=== PATIENT | female | born 1980 | race Caucasian/White ===

== ENCOUNTER 2024-02-03 11:42 | Emergency (ER) | payer BC, SELFPAY ==
--- NOTE | ~2024-02-03 | CT_ITS ---
EXAMINATION: CT brain wo con DATE: 02/03/2024 14:15 INDICATION: Facial weakness. TECHNIQUE: Computed tomography (CT) of the head was performed without intravenous contrast. The mA wa s adjusted according to patient size. Iterative reconstruction technique was employed. The dose-lengt h product was 605.33 mGy-cm. COMPARISON: None FINDINGS: There is no intracranial hemorrhage, acute infarction, or abnormal intracranial mass lesion . The ventricles are normal in size. The paranasal sinuses are clear. The orbits are normal. The mast oid air cells are normal. There is cerumen in right external auditory canal. IMPRESSION: 1. Normal brain. Reviewed, dictated and finalized at location E. IMPRESSION: 1. Normal brain.
--- NOTE | ~2024-02-03 | XR_ITS ---
EXAMINATION: XR chest 2V 02/03/2024 13:06 INDICATION: Chest pain PROCEDURE: 2 view chest COMPARISON: No prior studies FINDINGS: The lungs are clear. Calcified granuloma left thorax. The cardiomediastinal silhouette is w ithin normal limits. There are no pleural effusions. There is no pneumothorax suspected. IMPRESSION: 1: NO ACUTE CARDIOPULMONARY DISEASE. Reviewed, dictated and finalized at location B.
--- NOTE | 2024-02-03 11:43 | ECG_ITS ---
SEE SCANNED COPY FOR CONFIRMED REPORT MTDD
[2024-02-03 11:52] VITALS: BP 116/92; PULSE 81; RESP 15; TEMP 36.5; O2SAT 100
[2024-02-03 12:06] LABS: Basophils Absolute Auto 0.1 K/mm3 (0.0-0.1); Basophils Percent Auto 0.7 % (0.2-1.2); Eosinophils Absolute Auto 0.4 K/mm3 (0-0.3); Eosinophils Percent Auto 5.2 % (0-4.4); Hematocrit 42.3 % (37.0-47.0); Hemoglobin 14.1 g/dL (12.0-15.0); Immature Granulocyte Absolute 0.01 K/mm3 (0.00-0.031); Immature Granulocyte Percent A 0.1 % (0-0.5); Lymphocytes Absolute Auto 2.09 K/mm3 (0.9-3.2); Lymphocytes Percent Auto 29.3 % (18.3-44.2); Mean Corpuscular HGB Conc 33.3 g/dl (32-36); Mean Corpuscular Hemoglobin 30.6 pg (26-34); Mean Corpuscular Volume 91.8 fl (80-100); Mean Platelet Volume 8.9 fl (7.4-10.4); Monocytes Absolute Auto 0.5 K/mm3 (0.1-0.6); Monocytes Percent Auto 7.6 % (2.6-8.5); Neutrophils Absolute Auto 4.1 K/mm3 (1.3-6.7); Neutrophils Percent Auto 57.1 % (45.5-73.1); Platelet Count Result 424 k/mm3 (150-375); Red Blood Count 4.61 M/mm3 (4.2-5.4); Red Cell Distribution Width 12.4 % (11.5-14.5); White Blood Count 7.1 K/mm3 (4.5-10.0)
[2024-02-03 12:17] LABS: Alanine Aminotransferase 19 U/L (6-35); Albumin Level 4.7 g/dL (3.5-5.1); Alkaline Phosphatase 65 U/L (38-126); Anion Gap 7 mmol/L (4-12); Aspartate Amino Transferase 26 U/L (14-36); Bilirubin,Total 0.8 mg/dL (0.2-1.3); Blood Urea Nitrogen 8 mg/dL (7-17); Calcium 10.2 mg/dL (8.4-10.2); Carbon Dioxide 27 mmol/L (22-30); Chloride 104 mmol/L (98-107); Estimated CRCL calculation 103 ml/min; Estimated Glomerular Filt Rate > 60; Glucose 106 mg/dL (65-110); Lipase 72 U/L (23-300); Potassium 3.9 mmol/L (3.4-5.0); Prothrombin Time 13.1 Seconds (11.1-14.7); Sodium 138 mmol/L (137-145)
[2024-02-03 12:18] LABS: Partial Thromboplastin Time 32.3 Seconds (22.3-36.8)
--- NOTE | 2024-02-03 12:18 | ED.CHESTPAIN ---
HPI - Chest Pain General Chief Complaint: Chest Pain Stated Complaint: chest pain Time Seen by Provider: 02/03/24 12:00 History of Present Illness HPI narrative: Patient is a 43-year-old healthy female here with chest pain. She notes that about 1 week ago her chest pain began, was located on the right side, radiated up into her jaw and was associated with the headache behind her right eye. She notes that after some time it seemed to self resolve. She has had some mild aching in her chest throughout the week this week and today began having sharp pains again. She notes that a sharp, burning and stabbing pain located on the right side and once again going into her right jaw and having a headache behind her right eye. Since arrival to the ER, her pain is now completely resolved. She took nothing for the pain at home. She notes some associated mild shortness of breath throughout the week this week, no cough, congestion, fever, chills. No recent travel, no prior PE/DVT, no recent surgery. No family history of cardiac disease. Her only medication is spironolactone for acne. Related Data Allergies Allergy/AdvReac Type Severity Reaction Status Date / Time No Known Allergies Allergy Verified 02/03/24 11:42 Review of Systems Review of Systems: All systems reviewed & are unremarkable except as noted in HPI and below Exam Narrative: GENERAL: Well-appearing, well-nourished, and in no acute distress. HEAD: Normocephalic, atraumatic. EYES: PERRLA and EOMI. ENT: Nares clear. Mucous membranes moist. NECK: Supple. CHEST: Clear to auscultation. No respiratory distress. HEART: Regular rate and rhythm. Normal peripheral pulses. ABDOMEN: Soft, nontender, nondistended. EXTREMITIES: Normal range of motion. No edema. No calf tenderness. SKIN: Warm, dry, no rash. NEURO: No focal deficits. Alert and oriented x3. PSYCH: Normal mood and affect. Course Course Emergency Course: Chart review performed. Patient here with intermittent chest pain since last Friday, jaw pain, LAUGHLIN. Triage vitals normal. No prior visit in our system. Triage chest pain protocol reviewed. CBC unremarkable, CMP negative, initial troponin negative. Patient seen and evaluated, non toxic appearing, no current symptoms. Discussed cardiac workup with patient, agreeable. Applying PERC criteria, PE unlikely. Patient told nursing staff that she had a brief episode of facial droop over the last week which self resolved followed by an episode of slurred speech several days later which self resolved, no current neurological symptoms. Will do screening CT brain, NIH of 0, minimal risk factors for vascular disease, low suspicion for TIA. Repeat troponin negative. CT brain negative. CXR negative. negative. Will reevaluate patient. HEART Score of 0. Re-evaluated patient. She continues to be asymptomatic. Additional information obtained from patient regarding these nonspecific neurologic symptoms she had throughout the week this week. She states that last week she was getting massage and when she was lying on her back the massage therapist thought maybe she had a facial droop on the right side however upon sitting up there was no facial droop present and this never recurred. Suspect this could have just been positional as patient denied any symptom experienced at that time. She also notes that last week when she was on a phone call she noted her words seemed to be slurring which also occurred only over a few seconds and then returned to baseline. She did have a headache at that time and has never experienced these symptoms again. I did share decision making with patient regarding options for admission for MRI for possible TIA however she has very low risk for any cardiovascular disease or CVA, with minimal risk factors. TIA scores are low risk. She would prefer to establish care outpatient and discuss options further. Advised she should return to the emergency department [facility]
[2024-02-03 12:28] LABS: Troponin I < 0.012 ng/mL (0.000-0.034)
[2024-02-03] MEDS: ASPIRIN 81 MG CHEWABLE TABLET 324 MG PO (12:48)
--- NOTE | 2024-02-03 14:34 | ECG_ITS ---
SEE SCANNED COPY FOR CONFIRMED REPORT MTDD
[2024-02-03 15:20] LABS: Troponin I < 0.012 ng/mL (0.000-0.034)
[2024-02-03 16:19] VITALS: BP 124/98; PULSE 75; RESP 20; O2SAT 98
== END 2024-02-03 16:30 | disposition home or self-care (01) ==
PROVIDERS: Preventive Medicine Aerospace Medicine; Emergency Provider Student in an Organized Health Care Education/Training Program; Referring Provider Emergency Medicine
DX: R07.89 Other chest pain (principal); R00.1 Bradycardia, unspecified
CPT/HCPCS: 36415; 70450; 71046; 80053; 81025; 83690; 84484; 85025; 85610; 85730; 93005; 99284; A9270

== ENCOUNTER 2025-03-23 12:18 | Outpatient (CLI) | payer BC, SELFPAY ==
--- NOTE | ~2025-03-23 | MMUS_ITS ---
EXAMINATION: MM diagnostic benton LT w ricky, US breast LT complete HISTORY: Follow-up left breast asymmetries. TECHNIQUE: Additional 3-D tomosynthesis images of the left breast were performed and synthetic 2-D im ages were generated. CAD analysis was submitted and interpreted. High resolution complete left breast ultrasound was performed. COMPARISON: Mammogram dated 01/27/2025 BREAST PARENCHYMAL COMPOSITION: Dense: The breasts are heterogeneously dense, which may obscure small masses FINDINGS: MAMMOGRAPHIC FINDINGS: There are no suspicious masses, calcifications or architectural distortion in the left breast to sugg est malignancy ULTRASOUND: At 2:00, 2 cm from the nipple there is a prominent duct. At 2:00 near the nipple there is a 7 mm cyst . At 6:00, 3 cm from the nipple there is mildly prominent ducts. No suspicious masses to suggest nohemi gnancy. IMPRESSION: 1. No evidence for malignancy in the left breast. Benign findings. 2. Routine yearly screening mammogram and regular clinical breast examination are recommended. BI-RADS Category 2: Benign finding(s). Reviewed, dictated and finalized at location B. IMPRESSION: 1. No evidence for malignancy in the left breast. Benign findings. 2. Routine yearly screening mammogram and regular clinical breast examination a re recommended. BI-RADS Category 2: Benign finding(s).
--- OUTSIDE RECORDS SUMMARY | 2025-03-23 14:16 | XMS_ITS | Encounter Summary ---
Author Organization [facility] Healthcare Address [address] [place] [id number] Care Team Providers Care Chair Spring Assembler Name Role Phone Krystal Terrazas NP Primary Care Provider [phone] Encounter Details Date Type Department Care Team (Late st Contact Info) Description 02/17/2025 Results Follow-Up [facility] Primary Care at [address] [address] Krystal Terrazas NP [address] [facility] [address] [place] [address] CT Abdomen W WO Contrast Social History Tobacco Use Types Packs/Day Years Used Date Smoking Tobacco: Never Smokeless Tobacco: Never PHQ-2 Answer Date Recorded PHQ-2 Total Score (If total score is 3 or more points, staff should administer the PHQ-9) 0 12/30/2024 Comments No Sex and Gender Information Value Date Recorded Sex Assigned at Not on file Legal Sex Female 2:04 PM CDT Gender Identity Not on file Sexual Orientation Not on file documented as of this encounter Plan of Treatment Not on file documented as of this encounter Visit Diagnoses Not on filedocumented in this encounter Care Teams Chair Spring Assembler Relationship Specialty Start Date End Date Krystal Terrazas NP [address] [place] [address] [address] [place] [address] PCP - General Family Medicine 05/11/24 [facility] Obstetrics and Gynecology 05/11/24 documented as of this encounter
--- OUTSIDE RECORDS SUMMARY | 2025-03-23 14:16 | XMS_ITS | Referral Summary ---
Author Organization [address] Address [address] [facility] [address] [place] [address] Care Team Providers Care Core Paster Name Role Phone Krystal Terrazas NP Primary Care Provider [phone] Encounters Date Type Department Care Team Description 02/17/2025 Results Follow-Up [facility] Primary Care at [address] [address] Abdomen W WO Contrast 02/04/2025 1:47 PM CDT - 02/04/2025 11:59 PM CDT Hospital Encounter [facility] [address] [place] [phone] Adrenal mass, left Discharge Disposition: Discharge to home or self care 01/06/2025 Orders Only [facility] at [address] [place] [id number] Gissell Hubbard NP Aortic root dilation (Primary Dx) 01/06/2025 Results Follow-Up [facility] at [address] [place] [id number] Chest WO Contrast 12/31/2024 2:47 PM CDT - 12/31/2024 11:59 PM CDT Hospital Encounter [facility] [address] [place] [phone] Aortic root dilation Discharge Disposition: Discharge to home or self care 12/30/2024 8:00 AM CDT Office Visit [facility] Primary Care at [address] [address] Krystal Terrazas NP Annual physical exam (Primary Dx); Heart palpitations from Last 3 Months Allergies No known active allergies Medications spironolactone (ALDACTONE) 100 mg tablet Take 1 tablet (100 mg total) by mouth daily 4 Active levonorgestreL (MIRENA) IUD 1 each by intrauterine route once Active metoprolol XL (TOPROL-XL) 50 mg extended release tablet Take 1 tablet (50 mg total) by mouth daily 30 tablet 11 5 01/25/20 26 Active Active Problems Problem Noted Date Diagnosed Date Heart palpitations 12/30/2024 Assessment & Plan (12/30/2024 8:31 AM CDT): Pt experiencing headaches for past 2 weeks, started Metoprolol x 4 weeks ago--wondering if there is a correlation. Not overly convinced this is the case, discussed allergy medication. Pt can try splitting the Metoprolol in half to see if that helps headaches, if it does may need to consider switching beta-blockers. Aortic root dilation 07/21/2024 Immunizations Immunization Administration Dates Next Due Immune Globulin, IM 11/15/2014 Influenza, Unspecified 10/13/2023(Deferr ed: Patient Refused),10/13/2022(Deferred: Patient Refused) Tdap 03/09/2019 Social History Tobacco Use Types Packs/Day Years Used Date Smoking Tobacco: Never Smokeless Tobacco: Never Tobacco Cessation:Counseling Given: Not Answered PHQ-2 Answer Date Recorded PHQ-2 Total Score (If total score is 3 or more points, staff should administer the PHQ-9) 0 12/30/2024 Comments No Sex and Gender Information Value Date Recorded Sex Assigned at Not on file Legal Sex Female 2:04 PM CDT Gender Identity Not on file Sexual Orientation Not on file Last Filed Vital Signs Vital Sign Reading Time Taken Comments Blood Pressure 90/62 12/30/2024 8:10 AM CDT Pulse 75 12/30/2024 8:10 AM CDT Temperature 36.5 C (97.7 F) 12/30/2024 8:10 AM CDT Respiratory Rate 18 12/03/2024 9:26 AM TRIAL ATTORNEY Oxygen Saturation 96% 12/30/2024 8:10 AM CDT Inhaled Oxygen Concentration - - Weight 118.8 kg (262 lb) 12/30/2024 8:10 AM CDT Height 180.3 cm (5' 11) 12/30/2024 8:10 AM CDT Body Mass Index 36.54 12/30/2024 8:10 AM CDT Plan of Treatment Not on file Procedures Procedure Name Priority Date/Time Associated Diagnosis Comments CT ABDOMEN W WO CONTRAST Schedule Routine, Read Routine (OP Routine) 02/04/2025 2:23 PM CDT Adrenal mass, left CT CHEST WO CONTRAST Schedule Routine, Read Routine (OP Routine) 12/31/2024 3:00 PM CDT Aortic root dilation HEPATITIS C ANTIBODY Routine 05/14/2024 4:26 PM CDT Encounter for hepatitis C screening test for low risk patient HM PAP SMEAR WITH HPV Routine 01/29/2022 3:06 PM CDT from Last 3 Months or Most Recently Relevant to Health Maintenance Results * CT Abdomen W WO Contrast (02/04/2025 2:23 PM CDT) Anatomical Region Laterality Modality Body N/A Computed Tomogra phy 02/16/2025 4:00 PM CDT Narrative 02/16/2025 4:21 PM CDT EXAM DESCRIPTION: CT ABDOMEN W WO CONTRAST REASON FOR STUDY: Adrenal mass, > 2 to < 4cm, no history of malignancy, adrenal protocol, incidental finding on recent CT chest Incidental left adrenal mass seen on CT dated 12/31/24. Pt reports no complaints, no abdominal surgeries TECHNIQUE: CT scan of the abdomen performed without and with intravenous and without oral contrast using helical scanning technique with dynamic intravenous contrast injection. Reconstructed coronal and sagittal MPR images reviewed. All images stored on PACS. Automated exposure control was used as a dose optimization technique for this examination. CONTRAST TYPE/DOSE: 100mL of IOVERSOL 350 MG IODINE/ML INTRAVENOUS SYRINGE injected via right arm IV COMPARISON: CT chest 12/31/2024 FINDINGS: LOWER CHEST: No significant pulmonary abnormalities. No effusion. LIVER: Normal size. No identified cystic or solid masses. GALLBLADDER: Unremarkable. BILE DUCTS: No intrahepatic or extrahepatic ductal dilatation. SPLEEN: Normal size. No focal lesions. PANCREAS: No identified cystic or solid masses. No significant calcifications. No adjacent inflammation or peripancreatic fluid collections. Pancreatic duct not dilated. ADRENALS: Right adrenal gland is normal. 1.6 cm nodule in the left adrenal gland. This shows enhancement and washout characteristics compatible with a benign adenoma. KIDNEYS/URINARY TRACT: No identified significant cystic or solid masses. No stones. No hydronephrosis or hydroureter. Symmetric enhancement. GI: No dilated bowel loops. No obvious wall thickening. No significant diverticular disease. Partially visualized normal appendix. PERITONEUM: No ascites or free air. RETROPERITONEUM: No adenopathy. VASCULATURE: No abdominal aortic aneurysm. MUSCULOSKELETAL: No acute findings. OTHER: No other significant abnormality. IMPRESSION: 1.6 cm left adrenal nodule with enhancement and washout characteristics compatible with a benign adenoma. THIS IS AN ELECTRONICALLY VERIFIED FINAL REPORT 02/16/2025 4:21 PM - Electronically signed by Pawan Allred M.D. RW: EDOUARD Report ID: [id number] Reading Location: [id number] Procedure Note Pawan Allred MD - 02/16/2025 EXAM DESCRIPTION: CT ABDOMEN W WO CONTRAST REASON FOR STUDY: Adrenal mass, > 2 to < 4cm, no history of malignancy, adrenal protocol, incidental finding on recent CT chest Incidental left adrenal mass seen on CT dated 12/31/24. Pt reports no complaints, no abdominal surgeries TECHNIQUE: CT scan of the abdomen performed without and with intravenousand without oral contrast using helical scanning technique with dynamic intravenous contrast injection. Reconstructed coronal and sagittal MPRimages reviewed. All images stored on PACS. Automated exposure control was usedas a dose optimization technique for this examination. CONTRAST TYPE/DOSE: 100mL of IOVERSOL 350 MG IODINE/ML INTRAVENOUSSYRINGE injected via right arm IV COMPARISON: CT chest 12/31/2024 FINDINGS: LOWER CHEST: No significant pulmonary abnormalities. Noeffusion. LIVER: Normal size. No identified cystic or solid masses. GALLBLADDER: Unremarkable. BILE DUCTS: No intrahepatic or extrahepatic ductal dilatation. SPLEEN: Normal size. No focal lesions. PANCREAS: No identified cystic or solid masses. No significant calcifications. No adjacent inflammation or peripancreatic fluidcollections. Pancreatic duct not dilated. ADRENALS: Right adrenal gland is normal. 1.6 cm nodule in the left adrenal gland. This shows enhancement andwashout characteristics compatible with a benign adenoma. KIDNEYS/URINARY TRACT: No identified significant cystic or solid masses.No stones. No hydronephrosis or hydroureter. Symmetric enhancement. GI: No dilated bowel loops. No obvious wall thickening. No significant diverticular disease. Partially visualized normal appendix. PERITONEUM: No ascites or free air. RETROPERITONEUM: No adenopathy. VASCULATURE: No abdominal aortic aneurysm. MUSCULOSKELETAL: No acute findings. OTHER: No other significant abnormality. IMPRESSION: 1.6 cm left adrenal nodule with enhancement and washout characteristics compatible with a benign adenoma. THIS IS AN ELECTRONICALLY VERIFIED FINAL REPORT 02/16/2025 4:21 PM - Electronically signed by Pawan Allred M.D. RW: EDOUARD Report ID: [id number] Reading Location: [id number] Krystal Terrazas NP IMG CT PROCEDURES Final Result * CT Chest WO Contrast (12/31/2024 3:00 PM CDT) Anatomical Region Laterality Modality Body N/A Computed Tomogra phy 01/06/2025 9:34 AM CDT Narrative 01/06/2025 9:43 AM CDT EXAM DESCRIPTION: CT CHEST WO CONTRAST REASON FOR STUDY: Aortic aneurysm suspected, Thoracic aneurysm Aortic root dilation seen on echo approx 6 months ago. Palpitations for one year. TECHNIQUE: CT scan of the chest performed without intravenous contrast using helical scanning technique. Reconstructed coronal and sagittal MPR images reviewed. All images stored on PACS. Automated exposure control was used as a dose optimization technique for this examination. COMPARISON: None FINDINGS: The sensitivity for detection of solid visceral lesions is diminished without the use of intravenous contrast. LUNGS: There is no pneumonic consolidation. There is mild subsegmental scarring and atelectasis. There are scattered granulomatous calcifications. The central airways are widely patent. There is no suspicious pulmonary nodule. PLEURA: No effusion. No pneumothorax. MEDIASTINUM/INEZ: There is no mediastinal or hilar lymphadenopathy. Postinflammatory calcifications are present. HEART: The heart is normal in size without a pericardial effusion. . CORONARY ARTERY CALCIFICATION: No significant coronary artery calcification. VASCULATURE: The ascending thoracic aorta is borderline enlarged measuring 4 cm at the level of the main pulmonary trunk. At the sinuses of Valsalva, measurement is 3 point 5 cm. The descending thoracic aorta is normal in caliber. AXILLA: No adenopathy. CHEST WALL: No masses. No subcutaneous air. HARDWARE/LINES/TUBES: None. UPPER ABDOMEN: The visualized upper abdomen reveals contracted gallbladder. There is nodularity of the left adrenal gland, measuring 1.6 cm. Hounsfield units are 18, technically indeterminate. MUSCULOSKELETAL: No significant abnormality. OTHER: No other significant abnormality. IMPRESSION: Mild aneurysmal dilation of the ascending thoracic aorta measuring 4 cm at the level of the main pulmonary trunk. No pneumonic consolidation, effusion or pneumothorax. No lymphadenopathy. Indeterminate left adrenal nodule. Adrenal mass protocol imaging with CT or MRI recommended unless there are prior studies which document long-term stability. THIS IS AN ELECTRONICALLY VERIFIED FINAL REPORT 01/06/2025 9:43 AM - Electronically signed by Sonia Odom M.D. TW: TW Report ID: [id number] Reading Location: [place] [address] Procedure Note Sonia Odom MD - 01/06/2025 EXAM DESCRIPTION: CT CHEST WO CONTRAST REASON FOR STUDY: Aortic aneurysm suspected, Thoracic aneurysm Aortic root dilation seen on echo approx 6 months ago. Palpitations forone year. TECHNIQUE: CT scan of the chest performed without intravenous contrastusing helical scanning technique. Reconstructed coronal and sagittal MPR images reviewed. All images stored on PACS. Automated exposure control was usedas a dose optimization technique for this examination. COMPARISON: None FINDINGS: The sensitivity for detection of solid visceral lesions is diminished without the use of intravenous contrast. LUNGS: There is no pneumonic consolidation. There is mild subsegmental scarring and atelectasis. There are scattered granulomatouscalcifications. The central airways are widely patent. There is no suspicious pulmonary nodule. PLEURA: No effusion. No pneumothorax. MEDIASTINUM/INEZ: There is no mediastinal or hilar lymphadenopathy. Postinflammatory calcifications are present. HEART: The heart is normal in size without a pericardial effusion. . CORONARY ARTERY CALCIFICATION: No significant coronary arterycalcification. VASCULATURE: The ascending thoracic aorta is borderline enlargedmeasuring 4 cm at the level of the main pulmonary trunk. At the sinuses of Valsalva, measurement is 3 point 5 cm. The descending thoracic aorta is normal in caliber. AXILLA: No adenopathy. CHEST WALL: No masses. No subcutaneous air. HARDWARE/LINES/TUBES: None. UPPER ABDOMEN: The visualized upper abdomen reveals contractedgallbladder. There is nodularity of the left adrenal gland, measuring 1.6 cm.Hounsfield units are 18, technically indeterminate. MUSCULOSKELETAL: No significant abnormality. OTHER: No other significant abnormality. IMPRESSION: Mild aneurysmal dilation of the ascending thoracic aorta measuring 4 cmat the level of the main pulmonary trunk. No pneumonic consolidation, effusion or pneumothorax. No lymphadenopathy. Indeterminate left adrenal nodule. Adrenal mass protocol imaging with CTor MRI recommended unless there are prior studies which document long-term stability. THIS IS AN ELECTRONICALLY VERIFIED FINAL REPORT 01/06/2025 9:43 AM - Electronically signed by Sonia Odom M.D. TW: TW Report ID: [id number] Reading Location: [place] [address] Gissell Hubbard NP [facility] CT PROCEDURES Final Result * Hepatitis C antibody Blood (05/14/2024 4:26 PM CDT) Hep C Ab Nonreactive Nonreactive Comment: Interpretive Data Nonreactive: Antibodies to HCV not detected. Does NOT exclude the possibility of recent exposure to HCV. Equivocal: Equivocal for HCV antibodies. Supplemental molecular testing will be automatically performed to determine infection status in accordance with current CDC screening recommendations. Reactive: Positive for HCV antibodies. This may represent current or past HCV infection. Supplemental molecular testing will be automatically performed to determine current infection status in accordance with current CDC screening recommendations. Interpretive data was last revised on 2019. Blood 05/14/2024 4:26 PM CDT 05/14/2024 8:57 PM CDT Krystal Terrazas NP LAB MICROBIOLOGY - GENERAL ORDER SUSHMA Final Result [facility] [id number] [address] Department [place] [address] * HM PAP SMEAR WITH HPV (01/29/2022 3:06 PM CDT) Historical Provider HEALTH MAINTENANCE Final Result from Last 3 Months or Most Recently Relevant to Health Maintenance Insurance [employer] [place] Care Teams Core Paster Relationship Specialty Start Date End Date Krystal Terrazas NP [address] [address] PCP - General Family Medicine 05/11/24 [facility] Obstetrics and Gynecology 05/11/24
--- OUTSIDE RECORDS SUMMARY | 2025-03-23 14:16 | XMS_ITS | Clinical Summary ---
Author Organization [address] Address [address] [facility] [address] [place] [address] Care Team Providers Care Special Needs Child Caregiver Name Role Phone Krystal Terrazas NP Primary Care Provider [phone] Allergies No known active allergies Medications spironolactone [...] consider switching beta-blockers. Aortic root dilation 07/21/2024 Encounters Date Type Department Care Team Description 02/17/2025 Results Follow-Up [facility] Primary Care at [address] [address] Krystal Terrazas, CHRISTINE CT Abdomen W WO Contrast 02/04/2025 1:47 PM CDT - 02/04/2025 11:59 PM CDT Hospital Encounter [facility] [address] [place] [address] Adrenal mass, left Discharge Disposition: Discharge to home or self care 01/06/2025 Orders Only [facility] at [address] [place] [phone] Gissell Hubbard NP Aortic root dilation (Primary Dx) 01/06/2025 Results Follow-Up [facility] at [address] [address] Chest WO Contrast 12/31/2024 2:47 PM CDT - 12/31/2024 11:59 PM CDT Hospital Encounter [facility] [address] [place] [address] Aortic root dilation Discharge Disposition: Discharge to home or self care 12/30/2024 8:00 AM CDT Office Visit [facility] Primary Care at [address] [phone] Krystal Terrazas NP Annual physical exam (Primary Dx); Heart palpitations from Last 3 Months Immunizations Immunization Administration Dates Next Due Immune Globulin, IM 11/15/2014 Influenza, Unspecified 10/13/2023(Deferr ed: Patient Refused),10/13/2022(Deferred: Patient Refused) Tdap 03/09/2019 Surgical History Surgery Date Site/Laterality Comments DILATION AND CURETTAGE OF UTERUS 2008 Medical History Medical History Date Comments Acne Family History Medical History Relation Name Comments Pancreatic cancer Maternal Grandfather Hypertension Mother Ovarian cancer Mother's Sister vulvar cancer Mother's Sister Cancer Paternal Grandfather Heart failure Paternal Grandmother Ulcerative colitis Sister Relation Name Status Comments Maternal Grandfather Mother Mother's Sister Paternal Grandfather Paternal Grandmother Sister Social History Tobacco Use Types Packs/Day Years [...] on file Sexual Orientation Not on file Obstetrics History Last Filed Vital Signs Vital Sign Reading Time Taken Comments Blood Pressure 90/62 12/30/2024 8:10 AM CDT Pulse 75 12/30/2024 8:10 AM CDT Temperature 36.5 C (97.7 F) 12/30/2024 8:10 AM CDT Respiratory Rate 18 12/03/2024 9:26 AM DIRECTOR ON AIR Oxygen Saturation 96% 12/30/2024 8:10 AM CDT Inhaled Oxygen Concentration - - Weight 118.8 kg (262 lb) 12/30/2024 8:10 AM CDT Height 180.3 cm (5' 11) 12/30/2024 8:10 AM CDT Body Mass Index 36.54 12/30/2024 8:10 AM CDT Plan of Treatment Health Maintenance Due Date Last Done Comments Breast Cancer Screening-Mammogram 1982 Varicella Vaccines (1 of 2 - 13+ 2-dose series) 1995 Hepatitis B Screening 2000 Influenza Vaccine (Season Ended) 2025 Depression Screening 12/30/2025 12/30/2024, 05/11/2024 Regular Well Visit/Exam 18-64 12/30/2025 12/30/2024 Cervical Cancer Screening 05/11/20262022, 01/29/2022 DTaP/Tdap/Td Vaccine (2 - Td or Tdap) 03/09/2029 03/09/2019 Hepatitis C Screening Completed 05/14/2024 HPV Vaccines Aged Out No longer eligi ble based on patient's age to complete this topic Pneumococcal vaccine <65 Aged Out No longer eligible based on patient's age to complete this topic Procedures Procedure Name Priority Date/Time Associated Diagnosis [...] Pawan Allred M.D. RW: EDOUARD Report ID: [id number] Reading Location: [id number] Procedure Note Pawan Allred MD - 02/16/2025 [...] Pawan Allred M.D. RW: EDOUARD Report ID: [id number] Reading Location: [id number] [place] Krystal Terrazas NP IMG CT PROCEDURES Final [...] Electronically signed by Sonia Odom M.D. TW: ERIC Report ID: [id number] Reading Location: [id number] Procedure Note Sonia Odom MD - 01/06/2025 [...] Sonia Odom M.D. TW: TW Report ID: [id number] Reading Location: [place] [address] Gissell Hubbard SHOE SHANKER IMG CT PROCEDURES Final Result * Hepatitis C [...] MICROBIOLOGY - GENERAL ORDER SUSHMA Final Result [facility] [address] [address] Department [place] [address] * PAP SMEAR WITH HPV (01/29/2022 3:06 PM CDT) Historical Provider HEALTH MAINTENANCE Final Result from Last 3 Months or Most Recently Relevant to Health Maintenance Insurance [place] [employer] Care Teams Special Needs Child Caregiver Relationship Specialty Start Date End Date Krystal Terrazas NP [address] [address] PCP - General Family Medicine 05/11/24 [facility] Obstetrics and Gynecology 05/11/24
--- OUTSIDE RECORDS SUMMARY | 2025-03-23 14:16 | XMS_ITS | Data Portability ---
Author Organization [facility], [id number]. [facility] Address [address] [place] [address] Assessment Encounter Date Assessment Date Assessment LastModified by Organization Details LastModified Time 03/21/2025 03/21/2025 - Pap smear performed with concurrent HPV screening. - Discussion about the effectiveness and duration of the Mirena IUD. - Reinforce importance of regular breast self-examination s post-mammogram. [email or web address] Not available 03/21/2025 09:32:17 Plan of Treatment Reminders Order Date Submit Date Provider Last Modified By Organization Details Last Modified Time Details Appointments ANNUAL- EST 15 2025 08:00A Anupama CHILDRESS WHNP Not available Not available Not available Lab HPV DNA, high-risk - Reflex to genotypin g if HPV Detected 2024 025 [facility] ([facility]), [address] [facility] [address], [place], [address], 03/21/2025 12:58:15 pap, LB 2024 025 [facility] ([facility]), [address] [facility] [address] , [address], [place], [address], 03/21/2025 12:58:15 Referral None recorded. Procedures None recorded. Surgeries None recorded. Imaging None recorded. Medication Orders spironola ctone 25 mg tablet 2024 025 [facility], [address] [facility] [address] [facility] [address], [place], [address], 03/22/2025 09:55:07 Patient TargetsNo targets recorded. Patient Instructions Encounter Date Encounter Id Patient Instructions Last Modified By Organization Details Last Modified Time 03/21/2025 [id number] - Check the patient portal for Pap and HPV test results. - Maintain regular appointments for medication monitoring. [email or web address] Not available 03/22/2025 09:53:36 During the visit , we discussed the patient's ongoing health maintenance, including the importance of routine cervical cancer screening through Pap and HPV tests. Continued use of the Mirena IUD was confirmed effective, and advice was given for prescription maintenance of spironolactone for acne management. Mammogram follow-up discussion promised attention to incoming results. The patient was instructed to return for her next annual exam unless earlier attention is necessary per lab results or mammogram findings. [email or web address] Not available 03/21/2025 18:11:02 Reason for Referral None Reported. Results Created Date Observation Date Name Description Value Unit Range Abnormal Flag Note LastModifiedBy Organization Detail LastModifiedTime 03/23/20 25 03/23/2025 MAMMO , diagn ostic , digit al, unila teral No observ ation record ed. [facility] [address] [facility] [address], [place], [address], 03/23/2025 14:32:45 Result Notes None recorded. Problems Name Problem SNOMED Code Status Onset Date Resolution Date Notes Provider Name and Address Organization Details Recorded Time Atypical glandula r cells on cervical Papanico laou smear 192531232 Active Abnormal PAP Smear, Problem Code: 795.00; Problem Code Type: ICD-9; Startdat e: '10/20/13 HSGIL'; Not Available [facility] 13:10:44 Past pregnanc y history of gestatio nal diabetes mellitus 022924773 Completed 202403/17/2025 Yaneli ramirez [facility] 17:27:02 Palpitat ions 75714956 Completed 202403/21/2025 Yaneli ramirez [place] [facility] 08:49:17 Problem Notes None recorded. Procedures Surgical History Date Name Laterality Status Provider Name and Address Organization Details Recorded Time 01/28/20 Date of Last Mammogram completed JASON FUNES MD [address] [facility] [address], [place], [address], [facility] 02/03/2025 15:38:46 01/29/20 Date of Last Pap Smear completed Yaneli Olmos [facility] 03/17/2025 17:27:16 dilation and curettage completed Not Available [facility] 02/10/2025 15:48:40 introduction of Mirena coil completed Not Available [facility] 02/10/2025 15:48:40 colposcopy completed Not Available [facility] 02/10/2025 15:48:40 removal of Mirena coil completed Not Available [facility] 02/10/2025 15:48:40 Imaging Results None recorded. Procedure Notes None recorded. Medical Equipment None Reported. Allergies No known drug allergies Medications Name Sig Start Date Stop Date Status Note LastModified by Organization Details LastModified Time Mirena 21 mcg/24 hr (up to 8 years) 52 mg intrauterin e device Take by intrauter ine route. 2018 active Not Available Not Available Not Avai lable metoprolol succinate ER 50 mg tablet,exte nded release 24 hr TAKE 1 TABLET BY MOUTH ONCE DAILY active Not Available Not Available No t Available spironolact one 25 mg tablet Take 1 tablet every day by oral route. 2024 active Not Available Not Available Not Avai lable metoprolol succinate ER 25 mg tablet,exte nded release 24 hr TAKE 1 TABLET BY MOUTH ONCE DAILY 03/21 completed Not Available Not Available Not Available Vitals Date Recorded Body height Body mass index (BMI) Body weight Systolic blood pressure Diastolic blood pressure Provider Name and Address Organization Details Last Updated DateTime 03/21/2025 180.34 cm 36.8 kg/m2 258427.3 9 g 114 mm[Hg] 68 mm[Hg] Yaneli Olmos [facility] 5 08:48:12 Social History Question Answer Notes LastModified by Organizat [employer] Details LastModified Time Tobacco Smoking Status Never Smoker Not Available [facility] 02/10/2025 17:14:20 Do You Have An Advance Directive? No Information not available 03/21/2025 How Many Years Have You Consumed Alcohol? 21 Information not available 03/21/2025 What Is Your Level Of Caffeine Consumption? None Information not available 03/21/2025 What Type Of Diet Are You Following? REGULAR Information not available 03/21/2025 What Is Your Relationship Status? Information not available 03/17/2025 Sex: Female Functional Status Question Answer Note LastModified by Organ[employer]at [employer] Details LastModified Time Do you use any illicit or recreational drugs? No Information not available 02/10/2025 What is your level of alcohol consumption? Occasional Qty: occas; Note: Use status used: Current some day Amount used: occas Information not available 02/10/2025 Are you currently employed? 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 Family History Relationship Description Onset Age of this Age Resolved Age Notes LastModified by Organization Details LastModified Time Paternal Grandfather Malignant neoplastic disease Cancer PGF-CO BON Not available 02/10/2025 17:47:16 Sister Blood coagulation disorder Blood Clots Not available 02/10/2025 17:47:16 Medical History Condition Response Cardiology-Other Y Endocrinology- History of Gestational Di abetes Y Cancer- Genetic screening Neurology- Headaches/Migraines Y Gynecological History Statement/Question Response Flow Light Date of Last Mammogram 01/27/2025 History of Fibroids N Date of LMP 06/08/2019 Current Control Method: IUD History of Recurrent Ovarian Cysts N Age at first intercourse 20 Date of Last HPV Test 01/28/2022 History of PCOS N History of Infertility N History of Cervical Dysplasia N History of Vulvar Dysplasia N Duration of Flow (days) 0 Current Control Method Age at Menarche 14 History of Endometriosis N Frequency of Cycle (Q days) 0 Sexually Active? Y History of Abnormal PAP Y History of Dysmenorrhea N Menses Monthly N Date of Last Pap Smear 01/28/2022 Sexual Problems? N History of Sexually Transmitted Infectio n N Obstetrics History GPAL:G 4 P 2 0 2 2 Type Value Multiple Births 0 Full Term 2 Induced 0 Spontaneous 2 Premature 0 Living 2 Ectopics 0 Total 4 Past Encounters Encounter ID Performer Location Encounter Start Date Encounter Closed Date Diagnosis/Indication Diagnosis SNOMED-CT Code Diagnosis ICD10 Code Diagnosis Note [id number] [address], MD [id number] [facility] [address] [facility] [place] [address] 03/21/2025 08:36:12 03/21/2025 09:18:41 Screening for malignant neoplasm of cervix 273113975 Z12.4 - Perform Pap smear and convey results through the patient portal. Human salvador lloma virus screening 814476203 Z11.51 - Complete HPV test alongside Pap smear. 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 Gynecologi c examination 57230617 Z01.419 Female gen tiffany finding 854706982 Z01.419 Health Concerns Section Related Observation LastModified by Organization Detai ls LastModified Time None Recorded Concern Status LastModified by Organization Details LastModified Time None Recorded Advance Directives Directive N: Payers Insurance Date Sequence Insurance Name Policy Number Policy Vitale Covered Member ID Vitale Member ID Guarantor Name 03/18/2025 1 [place] [id number] Brynn Rand [id number] Brynn Rand Notes Date Note Type Note Provider Name and Address Organization Details Recorded Time 03/21/2025 text/html The patient is a 44-year-old female presenting for a well woman exam. Her visit focused on reproductive health evaluation, including the functional status of her Mirena IUD, which remains effective since its placement in 2019. The product has successfully managed her menstrual symptoms without periods or complications. Her sexual health remains stable, with no reported intercourse-related problems. Medications include spironolactone for managing hormonal acne. Cardiovascular and metabolic profiles were previously evaluated, maintaining stability with unremarkable findings. Past gynecological observation revealed a non-problematic vaginal cyst on the right side, consistently benign and unchanged. Prior mammogram procedures indicated further attention, and she awaits correspondence from the radiologist office. VERONICA Briscoe ZACHERYALFREDO CANDE [address] [facility] [address], [place], [address], [facility] 03/22/2025 09:55:04 OBGyn Episode Ob Episode Information Episode Created Date Number of Fetuses Patient Bloodtype Patient rh Status Prepregnancy Weight lbs Domestic Partner Domestic Partner Phone Father Name Last Picker Status 02/26/20 25 1 CLOSED Fetus Data First Name Last Name Admitted to NICU Weight (g) Sex Living Outcome Pediatric Complications Fetus ID Race Codes Race Delivery Type [id number] Luis E Calculation Initial Luis E Date Initial Exam Date Initial Exam Provider Initial Ultrasound Date Last Menstrual Period Date Ultra Sound Weeks Gestation 0 Eighteen To Twenty Week Luis E Update Ultra Sound Date Fundal Height At Umbil Quickening Date Ultra Sound Latest Weeks Gestation Final Luis E Confirmed By Final Luis E Confirmed Date Final Luis E Date Ultra Sound Latest Days Gestation 0 0 Menstrual History Last Menstrual Date Menses Monthly On Bcp Conception Prior Menses Frequency Hcg Plus Date Menarche Onset Age Delivery Information Delivery Date Delivery Type Labor Anesthesia Weeks Gestation Incision Type Labor Labor Length Hrs Delivered By Post Complications Tubal Sterilization Discharge Date Comments 3 , SAB, complete Discharge Information Feeding Method Contraceptive Method Maternal HG B and HCT Levels Ob Episode Information Episode Created Date Number of Fetuses Patient Bloodtype Patient rh Status Prepregnancy Weight lbs Domestic Partner Domestic Partner Phone Father Name Last Picker Status 02/26/20 1 CLOSED Fetus Data First Name Last Name Admitted to NICU Weight (g) Sex Living Outcome Pediatric Complications Fetus ID Race Codes Race Delivery Type [id number] Luis E Calculation Initial Luis E Date Initial Exam Date Initial Exam Provider Initial Ultrasound Date Last Menstrual Period Date Ultra Sound Weeks Gestation 0 Eighteen To Twenty Week Luis E Update Ultra Sound Date Fundal Height At Umbil Quickening Date Ultra Sound Latest Weeks Gestation Final Luis E Confirmed By Final Luis E Confirmed Date Final Luis E Date Ultra Sound Latest Days Gestation 0 0 Menstrual History Last Menstrual Date Menses Monthly On Bcp Conception Prior Menses Frequency Hcg Plus Date Menarche Onset Age Delivery Information Delivery Date Delivery Type Labor Anesthesia Weeks Gestation Incision Type Labor Labor Length Hrs Delivered By Post Complications Tubal Sterilization Discharge Date Comments 9 , MISCARRIA GE, W/ d&c ~ 10w Discharge Information Feeding Method Contraceptive Method Maternal HG B and HCT Levels Ob Episode Information Episode Created Date Number of Fetuses Patient Bloodtype Patient rh Status Prepregnancy Weight lbs Domestic Partner Domestic Partner Phone Father Name Last Picker Status 02/26/20 25 1 CLOSED Fetus Data First Name Last Name Admitted to NICU Weight (g) Sex Living Outcome Pediatric Complications Fetus ID Race Codes Race Delivery Type F [id number] Vaginal Luis E Calculation Initial Luis E Date Initial Exam Date Initial Exam Provider Initial Ultrasound Date Last Menstrual Period Date Ultra Sound Weeks Gestation 0 Eighteen To Twenty Week Luis E Update Ultra Sound Date Fundal Height At Umbil Quickening Date Ultra Sound Latest Weeks Gestation Final Luis E Confirmed By Final Luis E Confirmed Date Final Luis E Date Ultra Sound Latest Days Gestation 0 0 Menstrual History Last Menstrual Date Menses Monthly On Bcp Conception Prior Menses Frequency Hcg Plus Date Menarche Onset Age Delivery Information Delivery Date Delivery Type Labor Anesthesia Weeks Gestation Incision Type Labor Labor Length Hrs Delivered By Post Complications Tubal Sterilization Discharge Date Comments 7 Regional-Ep idural 38 false 36 sjb-adp, fetus_1_w eight_lbs : '7# 7OZ'; Discharge Information Feeding Method Contraceptive Method Maternal HG B and HCT Levels Ob Episode Information Episode Created Date Number of Fetuses Patient Bloodtype Patient rh Status Prepregnancy Weight lbs Domestic Partner Domestic Partner Phone Father Name Last Picker Status 02/26/20 25 1 CLOSED Fetus Data First Name Last Name Admitted to NICU Weight (g) Sex Living Outcome Pediatric Complications Fetus ID Race Codes Race Delivery Type M [id number] Vaginal Luis E Calculation Initial Luis E Date Initial Exam Date Initial Exam Provider Initial Ultrasound Date Last Menstrual Period Date Ultra Sound Weeks Gestation 0 Eighteen To Twenty Week Luis E Update Ultra Sound Date Fundal Height At Umbil Quickening Date Ultra Sound Latest Weeks Gestation Final Luis E Confirmed By Final Luis E Confirmed Date Final Luis E Date Ultra Sound Latest Days Gestation 0 0 Menstrual History Last Menstrual Date Menses Monthly On Bcp Conception Prior Menses Frequency Hcg Plus Date Menarche Onset Age Delivery Information Delivery Date Delivery Type Labor Anesthesia Weeks Gestation Incision Type Labor Labor Length Hrs Delivered By Post Complications Tubal Sterilization Discharge Date Comments 5 Regional-Ep idural 38 SJHB-CHD , fetus_1_w eight_lbs : '8lbs 14oz'; Discharge Information Feeding Method Contraceptive Method Maternal HG B and HCT Levels
== END 2025-03-23 12:19 | disposition home or self-care (01) ==
PROVIDERS: PCP Nurse Practitioner Family; Visit Provider Obstetrics & Gynecology
DX: R92.8 Other abnormal and inconclusive findings on diagnostic imaging of breast (principal)
CPT/HCPCS: 76641; 77061; 77065; G0279

== ENCOUNTER 2025-05-15 19:50 | Emergency (ER) | payer BC, SELFPAY ==
--- NOTE | 2025-05-15 20:11 | ED.DENTAL ---
HPI - Dental/Oral General Chief complaint: Dental/Oral Stated complaint: Tooth Pain Time Seen by Provider: 05/15/25 20:06 Source: patient and RN notes reviewed Mode of arrival: ambulatory Limitations: no limitations History of Present Illness HPI Narrative: Patient presents today complaining of left upper dental pain since yesterday morning. Denies fever, shortness of breath, difficulty swallowing, trismus. She has tried Tylenol and ibuprofen without relief and currently rates her pain 8/10. States she was seen a few weeks ago by her dentist and they stated they are going to watch the tooth. She will call tomorrow and schedule a follow-up visit. No recent antibiotic use. Affected tooth are ready has a crown Related Data Allergies Allergy/AdvReac Type Severity Reaction Status Date / Time No Known Allergies Allergy Verified 02/03/24 11:42 [facility] Comments At time of signature, I have reviewed and agree with nursing past medical, surgical, social and family history unless otherwise noted. Please see nursing chart for further information. There is no relevant family history pertinent to the presenting complaint Exam Narrative: GENERAL: Well-appearing, well-nourished, and in no acute distress. HEAD: Normocephalic, atraumatic. EYES: EOMI. No redness or drainage. Conjunctivae normal. ENT: Mucous membranes pink and moist. Tooth 15. Is tender to palpation, has a gold crown. Surrounding gingiva appears normal. No trismus. NECK: Normal AROM. Supple. No lymphadenopathy. CHEST: No respiratory distress. EXTREMITIES: Normal range of motion. No edema. SKIN: Warm, dry, no rash. Capillary refill normal. Normal skin turgor. NEURO: No focal deficits. Alert and oriented x3. Gait steady. PSYCH: Normal affect. No signs of depression or anxiety. Course Course Level of Care: Express Care Visit Vital Signs Vital signs: Reviewed MDM - Dental/Oral MDM Narrative Medical decision making narrative: 44-year-old female patient presents today with left upper dental pain since yesterday morning. Denies any additional symptoms and currently rates her pain 8/10. OTC medication without improvement. Dentist has been monitoring this tooth since her visit 2 weeks ago. Exam shows tenderness to tooth 15 without surrounding redness or swelling to the gingiva or obvious periapical abscess. Prescription for amoxicillin sent to pharmacy. Patient requesting pain medication for a few days, so prescription for tramadol sent as well. Vital signs stable. No red flag symptoms to suggest deep neck infection. Recommend dentist follow-up as soon as possible. Patient will call tomorrow and schedule a visit. Anticipatory guidance given. Differential Diagnosis Differential diagnosis: Likely gingival abscess, dental caries, toothache, dental abscess and fracture of tooth Critical Care Time Critical Care Time Critical Care Time: No Discharge Plan Discharge Clinical Impression: Toothache Patient Disposition: Home Condition: Stable Instructions: Toothache (ED) Additional Instructions: Please take the amoxicillin and tramadol as directed. Do not drive within 6 hours of taking the tramadol as it can make you drowsy. Follow-up with your dentist as soon as possible for further evaluation. Go to the ER immediately with any worsening symptoms such as shortness of breath, difficulty swallowing, fever, difficulty opening your mouth. Your blood pressure was elevated above 120/80 today at Urgent Care. This puts you above the threshold for follow up. Please schedule a followup visit with your personal physician as soon as possible, for further evaluation and treatment. Even blood pressure exceeding 120/80 may indicate pre-hypertension. Patient Language: Bengali Prescriptions: New amoxicillin 875 mg tablet 875 mg PO Q12H 10 Days Qty: 20 0RF tramadol 50 mg tablet 50 mg PO Q6H PRN (Reason: pain) Qty: 10 0RF Follow-up/Referrals: MkKrystal APRN [Primary Care Provider] - Time of Disposition: 20:18
[2025-05-15 20:14] VITALS: BP 123/99; PULSE 72; RESP 16; TEMP 36.1; O2SAT 100
== END 2025-05-15 20:20 | disposition home or self-care (01) ==
PROVIDERS: Emergency Provider Nurse Practitioner; PCP Nurse Practitioner Family
DX: K08.89 Other specified disorders of teeth and supporting structures (principal)
CPT/HCPCS: 99213; G0463